=== PATIENT | male | born 1985 | race Two or more races ===

== ENCOUNTER 2016-12-03 14:36 | Outpatient (CLI) | payer OTHER ==
[2016-12-03 15:03] LABS: BASOPHILS % (AUTO) 0.7 %; EOSINOPHILS # (AUTO) 0.2 10^3/uL (0.0-0.7); EOSINOPHILS % (AUTO) 2.8 %; HCT - HEMATOCRIT 45.7 % (42.0-52.0); HGB - HEMOGLOBIN 15.5 g/dL (14.0-18.0); LYMPHOCYTES # (AUTO) 2.3 10^3/uL (1.5-3.5); LYMPHOCYTES % (AUTO) 38.7 %; MEAN CORPUSCULAR HEMOGLOBIN 28.4 pg (27.0-31.0); MEAN CORPUSCULAR VOLUME 83.5 fL (80.0-94.0); MEAN PLATELET VOLUME 8.2 fL (7.4-11.4); MONOCYTES # (AUTO) 0.4 10^3/uL (0.0-1.0); MONOCYTES % (AUTO) 5.9 %; NEUTROPHILS # (AUTO) 3.1 10^3/uL (1.5-6.6); NEUTROPHILS % (AUTO) 51.9 %; NUCLEATED RED BLOOD CELLS AUTO 0.1 /100WBC; RED BLOOD COUNT 5.47 10^6/uL (4.70-6.10); RED CELL DISTRIBUTION WIDTH 13.7 % (12.0-15.0); UNCORRECTED WHITE BLOOD COUNT 5.9 x10^3/uL; WHITE BLOOD COUNT 5.9 x10^3/uL (4.8-10.8)
[2016-12-03 15:06] LABS: BILIRUBIN,URINE NEGATIVE (NEGATIVE)
[2016-12-03 15:10] LABS: UA CHARGE (STRIP ONLY) YES
[2016-12-03 15:31] LABS: ALBUMIN/GLOBULIN RATIO 1.7 (1.0-2.2); BILIRUBIN,TOTAL 0.6 mg/dL (0.2-1.0); BUN - BLOOD UREA NITROGEN 14 mg/dL (6-20); CALCIUM 9.5 mg/dL (8.5-10.3); CARBON DIOXIDE - CO2 30 mmol/L (21-32); CHLORIDE 100 mmol/L (101-111); CREATININE 0.9 mg/dL (0.6-1.2); GFR - MDRD 97 (>89); GLUCOSE 74 mg/dL (70-100); POTASSIUM 3.4 mmol/L (3.5-5.0); SODIUM 140 mmol/L (135-145); TOTAL PROTEIN 7.9 g/dL (6.7-8.2)
== END 2016-12-03 14:37 | disposition home or self-care (01) ==
LOC: LAB 14:36
PROVIDERS: ATTEND Surgery
DX: R19.4 Change in bowel habit (principal)
CPT/HCPCS: 36415; 80053; 81001; 81003; 85025; 85651; 86140

== ENCOUNTER 2016-12-05 08:00 | Outpatient (CLI) | payer OTHER | END 2016-12-05 08:01 | disposition home or self-care (01) | LOC: LAB.R 08:00 | PROVIDERS: ATTEND Surgery | DX: R19.4 Change in bowel habit (principal) | CPT/HCPCS: 82270; 83630; 87045; 87046; 87177; 87209; 87493 ==

== ENCOUNTER 2016-12-08 08:00 | Outpatient (CLI) | payer OTHER | END 2016-12-08 08:01 | disposition home or self-care (01) | LOC: LAB.R 08:00 | PROVIDERS: ATTEND Surgery | DX: R19.4 Change in bowel habit (principal) | CPT/HCPCS: 82270 ==

== ENCOUNTER 2016-12-26 06:07 | Day surgery (SDC) | payer OTHER ==
[2016-12-26] MEDS ORDERED: ceFAZolin 2 GM/50 ML 2 GM/50 ML BAG IV ONE (06:42)
[2016-12-26] MEDS ORDERED: LACTATED RINGERS 1,000 ML IV ONE (07:02)
[2016-12-26] MEDS ORDERED: levoFLOXacin 500 MG/100 ML 500 MG/100 ML BAG IV ONE (08:03)
[2016-12-26] MEDS ORDERED: BUPIVACAINE 0.5% PF 30 ML VIAL INFIL ONE ×2 (08:11)
[2016-12-26] MEDS ORDERED: PROPOFOL 200 MG/20 ML VIAL IVP ONE (09:46)
[2016-12-26] MEDS ORDERED: NEOSTIGMINE 1 MG/1 ML 10 ML MDV IVP ONE (09:46)
[2016-12-26] MEDS ORDERED: KETOROLAC 30 MG/ML VIAL IVP ONE (09:46)
[2016-12-26] MEDS ORDERED: LIDOCAINE-MPF 2% 5 ML VIAL IM ONE (09:46)
[2016-12-26] MEDS ORDERED: ACETAMINOPHEN 1,000 MG/100 ML 100 ML IV ONE (09:46)
[2016-12-26] MEDS ORDERED: fentaNYL 100 MCG/2 ML VIAL IVP ONE (09:46)
[2016-12-26] MEDS ORDERED: GLYCOPYRROLATE 1 MG/5 ML VIAL IVP ONE (09:46)
[2016-12-26] MEDS ORDERED: ONDANSETRON 4 MG/2 ML VIAL IVP ONE (09:46)
[2016-12-26] MEDS ORDERED: HYDROcod/ACETAM 5/325 MG TABLET ONE (10:30)
[2016-12-26 11:04] VITALS: BP 142/74
--- NOTE | 2016-12-27 04:53 | OPERATIVE REPORT ---
DATE OF SURGERY: PREOPERATIVE DIAGNOSIS: Right inguinal hernia. POSTOPERATIVE DIAGNOSIS: Right inguinal hernia. NAME OF PROCEDURE: Laparoscopic right inguinal hernia repair. SURGEON: Eros Musa MD ANESTHESIA: General, Dr. INDICATIONS FOR PROCEDURE: The patient is a 31-year-old male who presents with pain in the right groi n region. On physical exam, he had what appeared to be right inguinal hernia having weakness being no jackson. FINDINGS AT PROCEDURE: The patient has probable small indirect right inguinal hernia being present. I t was repaired using Bard large 3DMax lightweight mesh placed over the myopectineal orifice. The casey ent had previous surgery on the left side and densely scarred. I had seen the floor of the inguinal c anal and did not see any hernia being present. DESCRIPTION OF PROCEDURE: After informed consent was obtained, the patient taken to the operating ori m and placed in supine position. General endotracheal anesthesia was administered. The patient's abdo men was then prepped and draped in usual sterile fashion. Prior to making any abdominal incisions, th e skin was injected with local anesthesia. An infraumbilical incision was made in the skin using a sc alpel and this was carried down to the fascial layer using electrocautery. The anterior rectus sheath was then split laterally, allowing entrance to the retrorectus space on the left side. The dissectin g balloon was then placed into the space down to the pubic bone and inflated. It was then removed, an d the structural balloon was then inserted with the preperitoneal space being insufflated. A 5 mm por t was then placed in the midline, middle and lower portion under direct vision after making incisions in the skin. Attention turned to the right groin. The internal inguinal ring was then identified. The patient appe ared to have a small indirect inguinal hernia. The hernia sac was dissected out of the inguinal canal with the peritoneum then dissected off the vas deferens and testicular vessels. This was done throug h the anterior superior iliac spine. The patient did not appear to have any direct hernia being prese nt. Looking on the left side, no indirect hernia was noted. There was dense scarring from previous hernandez rgery. Bard large 3DMax lightweight mesh was then placed over the myopectineal orifice on the right side. Th is covered the floor of the inguinal canal in the internal inguinal ring well. 10 mL of Marcaine was then sprayed over the vas deferens and testicular vessel area. The preperitoneal space was then desuf flated with the mesh staying in good position. The ports had been removed. The anterior rectus sheath was then closed using running 3-0 Vicryl suture. Skin incisions were closed using 4-0 Monocryl subcu ticular stitch. Dermabond was then applied to the incision sites. The patient was then awakened, extu bated, and taken from the operating room in stable condition. ESTIMATED BLOOD LOSS: Less than 5 mL. COMPLICATIONS: None. CONDITION OF THE PATIENT AT END OF PROCEDURE: Stable. SPECIMENS: None. DRAINS/PACKS: None. CLASSIFICATION OF WOUND: Clean. JOB #: [id number] EXT JOB #:[id number]
== END 2016-12-26 06:08 | disposition home or self-care (01) ==
LOC: SDS 06:07
PROVIDERS: ATTEND Surgery
PROC: 0YU54JZ Supplement Right Inguinal Region with Synthetic Substitute, Percutaneous Endoscopic Approach (ICD-10-PCS; principal; 2016-12-26 07:30)
DX: K40.90 Unilateral inguinal hernia, without obstruction or gangrene, not specified as recurrent (principal)
CPT/HCPCS: 49650; A9270; C1781; J0131; J7120